=== PATIENT | female | born 1995 | race Caucasian/White ===

== ENCOUNTER 2024-08-24 20:26 | Emergency (ER) | payer OTHER, SELFPAY ==
--- OUTSIDE RECORDS SUMMARY | 2024-08-20 04:27 | XMS_ITS | Continuity of Care Document ---
Author Organization [facility] Address [address] [place] [address] [place] [address] Phone Care Team Providers Care Fruit Packer Name Role Phone Marivel Perez Unavailable Unavailable Procedures Procedure Date PSYCH DIAGNOSTIC EVALUATION Advance Directives Directive Yes / No Effective Date File Name No Information Encounters Encounter Description Practice Location Reason(s) For Visit Diagnoses Date Provider Providers Copied on Encounter [facility], [address] [place], [address], [place] tel: [phone] [facility] Opioid use disorder, severeAmphetamine type substance use disorder, severeAlcohol dependence, in remission 5 Chris Orta . [address], [place], [place], [id number] , [place]. tel: [phone] PSYCH DIAGNOSTIC EVALUATION [facility], [address] [place], [address], [place] tel: [phone] [facility] Imprisonment and other incarcerationAmphet amine type substance use disorder, severeAlcohol dependence, in remissionOpioid use disorder, severeMood disorder 4 Chris Orta . [address], [place], [place], [id number] , [place]. tel:+ [phone] Family History Family Member Type Diagnosis Age At Onset No Information Payers Payer name Insurance type Covered constitution party ID Authoriza tion(s) [facility] [id number] Medicaid Wrap [facility] [id number] Social History Type Description Quantity Date Captured Comments Sex Female Smoking Status No Information Sexual Orientation Straight or heterosexual Jan Gender Identity Female Chief Complaint And Reason For Visit No Information Reason For Referral Reason For Referral No Information History Of Present Illness Encounter Date Complaint History Of Prese nt Illness No Information Functional Status Date Functional Assessmen t No Information Instructions Date Instruction Additional Infor mation No Information Assessments Type Assessment Date assessment Opioid use disorder, severe assessment Amphetamine type substance use d isorder, severe assessment Alcohol dependence, in remission Patient Care Teams Name Effective Dates (start - stop) Status Members No Information
[2024-08-24] VITALS (17 sets, daily range): BP systolic 121; BP diastolic 87; PULSE 80–108; TEMP 37.1; O2SAT 100; BMI 34.2
--- OUTSIDE RECORDS SUMMARY | 2024-08-24 13:57 | XMS_ITS | Encounter Summary ---
Author Organization [facility] Address [address] [place] [address] Care Team Providers Care Real Estate Sales Supervisor Name Role Phone Unavailable Primary Care Provider Unavailabl e Reason for Visit * Reason Comments Hyperglycemia Blood sugar 141 Encounter Details Date Type Department Care Team ([facility] st Contact Info) Description 08/24/2024 1:57 PM EDT - 08/24/2024 2:42 PM EDT Emergency [facility] Emergency Department [facility] [phone] Prosper Bloom MD [address] [place] [address] Hyperglycemia due to diabetes mellitus (HCC) (Primary Dx) Discharge Disposition: Home or Self Care Social History Tobacco Use Types Packs/Day Years Used Date Smoking Tobacco: Every Day Cigarettes Smokeless Tobacco: Never Tobacco Cessation:Ready to Q uit: Not Asked; Counseling Given: Not Answered Alcohol Use Standard Drinks/Week Comments Not Currently 0 (1 standard drink = 0.6 oz pur e alcohol) Comments No Sex and Gender Information Value Date Recorded Sex Assigned at Not on file Legal Sex Female 1:35 PM EDT Gender Identity Not on file Sexual Orientation Not on file documented as of this encounter Last Filed Vital Signs Vital Sign Reading Time Taken Comments Blood Pressure 105/78 08/24/2024 1:52 PM EDT Pulse 105 08/24/2024 1:52 PM EDT Temperature 36.5 C (97.7 F) 08/24/2024 1:52 PM EDT Respiratory Rate 16 08/24/2024 1:52 PM EDT Oxygen Saturation 100% 08/24/2024 1:52 PM EDT Inhaled Oxygen Concentration - - Weight 77.1 kg (170 lb) 08/24/2024 1:52 PM EDT Height 152.4 cm (5') 08/24/2024 1:52 PM EDT Body Mass Index 33.2 08/24/2024 1:52 PM EDT documented in this encounter Discharge Instructions * Discharge Instructions* Prosper Bloom MD - 08/24/2024 2:11 PM EDT Continue taking your home medications as prescribed. Follow-up with your primary care physician as scheduled. Return back to the emergency department if you notice any concerning or worsening signs or symptoms. * Attachments The following attachments cannot be sent through Care Everywhere. * Diabetes: Insulin Pens: General Info (Wolof) * Diabetes: Type 2: General Info (Wolof) documented in this encounter Medications at Time of Discharge insulin lispro, 1 Unit Dial, (HUMALOG KWIKPEN) 100 UNIT/ML SOPN Inject 8 Units into the skin 3 times daily 3 Adjustable Dose Pre-filled Pen Syringe 08/24/2024 blood glucose monitor strips Test 3 times a day & as needed for symptoms of irregular blood glucose. Dispense sufficient amount for indicated testing frequency plus additional to accommodate PRN testing needs. 25 strip 08/24/2024 documented as of this encounter Plan of Treatment Not on file documented as of this encounter Procedures Procedure Name Priority Date/Time Associated Diagnosis Comments POC GLUCOSE FINGERSTICK Routine 08/24/2024 1:52 PM EDT documented in this encounter Results * (ABNORMAL) POC Glucose Fingerstick (08/24/2024 1:52 PM EDT) POC Glucose 141(H) 65 - 105 mg/dL 08/24/2024 1:52 PM EDT [facility] 08/24/2024 1:52 PM EDT 08/24/2024 1:58 PM EDT us Unknown Provider Result POINT OF CARE TEST ORDER ALFONSO Final Result [facility] [address] [place] [address], [facility] [phone] documented in this encounter Visit Diagnoses Diagnosis Hyperglycemia due to diabetes mellitus (HCC)- Primary documented in this encounter
--- NOTE | 2024-08-24 20:40 | ED_ITS ---
Documented by User: Dilshad Norman NP 08/24/24 21:39 HPI HPI - General Adult General Chief complaint: Chest Pain Stated complaint: CHEST PAIN Time Seen by Provider: 08/24/24 20:34 Source: patient Mode of arrival: walk-in Limitations: no limitations History of Present Illness HPI narrative: The patient is a 28-year-old female who is currently undergoing drug treatment rehabilitation at [facility] presents to the emergency department today for evaluation concerns for chest pain and shortness of breath. She endorses for the past hour she has had the left side pressure with associated symptoms of shortness of breath. She initially mention she has felt anxious and does have separation anxiety from her boyfriend. She denies any abdominal pain or n ausea/vomiting. No fever/chills or cough/cold symptoms. She does endorse a history of being type I diabetic and gastroparesis. She denies any history of VTE. Related Data Home Medications ?Medication ?Instructions ?Recorded ?Confirmed insulin lispro 100 unit/mL 1 sliding scale dose subcut 08/24/24 08/24/24 subcutaneous pen (Humalog KwikPen USEASDIRECTD (U-100) Insulin) Allergies Allergy/AdvReac Type Severity Reaction Status Date / Time hydrocodone Allergy Mild Hives Verified 08/24/24 20:35 Review of Systems ROS Status of ROS 10 or more systems reviewed and unremark able except as noted in history and below PFSH PFSH Social History Little interest or pleasure in doing things: not at all Feeling down, depressed, or hopeless: not at all Exam Narrative Exam Narrative: Constituational: Awake/ alert, no apparent distress, well hydrated HENMT: normocephalic, external ears normal, moist oral mucous membranes and oropharynx normal Eyes: EOMI and conjunctivae normal Neck: ROM intact Chest: inspection of chest normal Respiratory: Normal respiratory effort, clear to auscultation bilaterally Cardio: regular rate and regular rhythm GI: soft to palpation and non-tender Back: nontender MSK: ROM intact, +NVI Skin: no rashes or petechiae Neuro: no focal deficits Psych: + Mildly anxious, otherwise mental status grossly normal Constitutional Vital Signs, click to edit/add: Last Vital Signs Temp 98.7 F 08/24/24 20:30 Pulse 104 H 08/24/24 20:30 Resp 18 08/24/24 20:30 BP 121/87 08/24/24 20:30 Pulse Ox 100 08/24/24 20:30 O2 Del Method Room Air 08/24/24 20:30 Course Vital Signs Vital signs: Vital Signs Temperature 98.7 F 08/24/24 20:30 Pulse Rate 104 H 08/24/24 20:30 Respiratory Rate 18 08/24/24 20:30 Blood Pressure 121/87 08/24/24 20:30 Pulse Oximetry 100 08/24/24 20:30 Oxygen Delivery Method Room Air 08/24/24 20:30 Temperature 98.7 F 08/24/24 20:30 Pulse Rate 104 H 08/24/24 20:30 Respiratory Rate 18 08/24/24 20:30 Blood Pressure 121/87 08/24/24 20:30 Pulse Oximetry 100 08/24/24 20:30 Oxygen Delivery Method Room Air 08/24/24 20:30 Medical Decision Making MDM Narrative Medical decision making narrative: Patient is a well-appearing 28-year-old female who presented to the emergency department today for evaluation concerns for left-sided chest pain and shortness of breath. Initial examination vital signs overall stable. She does not appear to be exhibiting any ischemic symptoms and does appear euvolemic on exam. EKG without acute changes. X-ray without acute findings per ER interpre tation. Labs pending -> care endorsed to Dr. Acosta 21:40p follow-up on pending labs and further determine disposition patient Medical Records Medical records reviewed: Yes I reviewed the patient's medical records Lab Data Lab results reviewed: Yes I reviewed the patient's lab results Labs: Lab Results 08/24/24 Range/Units 21:56 WBC 8.2 (4.0-11.0) 10^3/uL RBC 3.67 L (4.20-5.40) 10^6/uL Hgb 11.1 L (12.0-16.0) g/dL Hct 32.2 L (36.0-48.0) % MCV 87.7 (81.0-99.0) fL MCH 30.2 (26.7-34.0) pg MCHC 34.5 (29.9-35.2) g/dL RDW 13.1 (11.0-15.0) % Plt Count 283 (150-450) 10^3/uL MPV 10.3 (9.5-13.5) fL Neut % (Auto) 49.9 (43.0-75.0) % Lymph % (Auto) 37.1 (20.5-60.0) % [place] % (Auto) 9.6 (1.7-12.0) % Eos % (Auto) 2.6 (0.9-7.0) % Baso % (Auto) 0.6 (0.2-2.0) % Neut # (Auto) 4.1 (1.4-6.5) 10^3/uL Lymph # (Auto) 3.0 (1.2-3.8) 10^3/uL [place] # (Auto) 0.8 (0.3-0.8) 10^3/uL Eos # (Auto) 0.2 (0.0-0.7) 10^3/uL Baso # (Auto) 0.1 (0.0-0.1) 10^3/uL Abs Immat Gran (auto) 0.02 (0.00-0.03) 10^3/uL Imm/Tot Granulo (auto) 0.2 (0.0-0.5) % D-Dimer 0.45 (<=0.59) mg/L FEU Sodium 144 (136-145) mmol/L Potassium 3.6 (3.5-5.1) mmol/L Chloride 105 (98-107) mmol/L Carbon Dioxide 28.9 (21.0-32.0) mmol/L Anion Gap 13.7 BUN 7.0 (7.0-18.0) mg/dL Creatinine 0.53 L (0.55-1.02) mg/dL Est GFR ( Amer) >60 (>=60 mL/min/1.73m^2) Est GFR (Non-Af Amer) >60 (>=60 mL/min/1.73m^2) BUN/Creatinine Ratio 13.2 Glucose 74 (74-106) mg/dL Calcium 8.8 (8.5-10.1) mg/dL Total Bilirubin 0.6 (0.2-1.0) mg/dL AST 19 (15-37) U/L ALT 24 (14-59) U/L Alkaline Phosphatase 80 (46-116) U/L Troponin I High Sens 5.3 (4.0-51.3) pg/mL Total Protein 6.5 (6.4-8.2) g/dL Albumin 3.5 (3.4-5.0) g/dL Globulin 3.0 g/dL Albumin/Globulin Ratio 1.2 Imaging Data Chest x-ray: Attestation: I personally reviewed and interpreted this imaging study as follows: My impression: No pneumonia, effusion, pneumothorax ECG Data Attestation: I personally reviewed and interpreted this ECG as follows: (SR with HR 87, no acute/ischemic changes) Discharge Plan Discharge Chief Complaint: Chest Pain Clinical Impression: Chest pain, Pneumonia Patient Disposition: Home, Self-Care Prescriptions / Home Meds: No Action insulin lispro [Humalog KwikPen Insulin] 100 unit/mL insulin pen 1 sliding scale dose subcut USEASDIRECTD Print Language: Chinese Instructions: Noncardiac Chest Pain (ED), Pneumonia (ED) Additional Instructions: follow up with your doctor next week for recheck. Return if worse Referrals: Physician,Non-Staff, [Primary Care Provider] - 1 week Documented by User: Abdirahman Acosta MD 08/25/24 05:04 HPI HPI - General Adult General Chief complaint: Chest Pain Stated complaint: CHEST PAIN Time Seen by Provider: 08/24/24 20:34 Related Data Home Medications ?Medication ?Instructions ?Recorded ?Confirmed insulin lispro 100 unit/mL 1 sliding scale dose subcut 08/24/24 08/24/24 subcutaneous pen (Humalog KwikPen USEASDIRECTD (U-100) Insulin) Allergies Allergy/AdvReac Type Severity Reaction Status Date / Time hydrocodone Allergy Mild Hives Verified 08/24/24 20:35 PFSH PFSH Social History Little interest or pleasure in doing things: not at all Feeling down, depressed, or hopeless: not at all Exam Constitutional Vital Signs, click to edit/add: Last Vital Signs Temp 98.7 F 08/24/24 20:30 Pulse 104 H 08/24/24 20:30 Resp 18 08/24/24 20:30 BP 121/87 08/24/24 20:30 Pulse Ox 100 08/24/24 20:30 O2 Del Method Room Air 08/24/24 20:30 Course Vital Signs Vital signs: Vital Signs Temperature 98.7 F 08/24/24 20:30 Pulse Rate 104 H 08/24/24 20:30 Respiratory Rate 18 08/24/24 20:30 Blood Pressure 121/87 08/24/24 20:30 Pulse Oximetry 100 08/24/24 20:30 Oxygen Delivery Method Room Air 08/24/24 20:30 Temperature 98.7 F 08/24/24 20:30 Pulse Rate 104 H 08/24/24 20:30 Respiratory Rate 18 08/24/24 20:30 Blood Pressure 121/87 08/24/24 20:30 Pulse Oximetry 100 08/24/24 20:30 Oxygen Delivery Method Room Air 08/24/24 20:30 Medical Decision Making MDM Narrative Medical decision making narrative: Patient is a well-appearing 28-year-old female who presented to the emergency department today for evaluation concerns for left-sided chest pain and shortness of breath. Initial examination vital signs overall stable. She does not appear to be exhibiting any ischemic symptoms and does appear euvolemic on exam. EKG without acute changes. X-ray without acute findings per ER interpretation. Labs pending -> care endorsed to Dr. Acosta 21:40p follow-up on pending labs and further determine disposition patient care transferred at change of shift. d-dimer neg. cxray per my impression with early infiltrate left lower lobe. Patient informed of the above and will treat as CAP Lab Data Labs: Lab Results 08/24/24 Range/Units 21:56 WBC 8.2 (4.0-11.0) 10^3/uL RBC 3.67 L (4.20-5.40) 10^6/uL Hgb 11.1 L (12.0-16.0) g/dL Hct 32.2 L (36.0-48.0) % MCV 87.7 (81.0-99.0) fL MCH 30.2 (26.7-34.0) pg MCHC 34.5 (29.9-35.2) g/dL RDW 13.1 (11.0-15.0) % Plt Count 283 (150-450) 10^3/uL MPV 10.3 (9.5-13.5) fL Neut % (Auto) 49.9 (43.0-75.0) % Lymph % (Auto) 37.1 (20.5-60.0) % [place] % (Auto) 9.6 (1.7-12.0) % Eos % (Auto) 2.6 (0.9-7.0) % Baso % (Auto) 0.6 (0.2-2.0) % Neut # (Auto) 4.1 (1.4-6.5) 10^3/uL Lymph # (Auto) 3.0 (1.2-3.8) 10^3/uL [place] # (Auto) 0.8 (0.3-0.8) 10^3/uL Eos # (Auto) 0.2 (0.0-0.7) 10^3/uL Baso # (Auto) 0.1 (0.0-0.1) 10^3/uL Abs Immat Gran (auto) 0.02 (0.00-0.03) 10^3/uL Imm/Tot Granulo (auto) 0.2 (0.0-0.5) % D-Dimer 0.45 (<=0.59) mg/L FEU Sodium 144 (136-145) mmol/L Potassium 3.6 (3.5-5.1) mmol/L Chloride 105 (98-107) mmol/L Carbon Dioxide 28.9 (21.0-32.0) mmol/L Anion Gap 13.7 BUN 7.0 (7.0-18.0) mg/dL Creatinine 0.53 L (0.55-1.02) mg/dL Est GFR ( Amer) >60 (>=60 mL/min/1.73m^2) Est GFR (Non-Af Amer) >60 (>=60 mL/min/1.73m^2) BUN/Creatinine Ratio 13.2 Glucose 74 (74-106) mg/dL Calcium 8.8 (8.5-10.1) mg/dL Total Bilirubin 0.6 (0.2-1.0) mg/dL AST 19 (15-37) U/L ALT 24 (14-59) U/L Alkaline Phosphatase 80 (46-116) U/L Troponin I High Sens 5.3 (4.0-51.3) pg/mL Total Protein 6.5 (6.4-8.2) g/dL Albumin 3.5 (3.4-5.0) g/dL Globulin 3.0 g/dL Albumin/Globulin Ratio 1.2 Discharge Plan Discharge Chief Complaint: Chest Pain Clinical Impression: Chest pain, Pneumonia Patient Disposition: Home, Self-Care Prescriptions / Home Meds: No Action insulin lispro [Humalog KwikPen Insulin] 100 unit/mL insulin pen 1 sliding scale dose subcut USEASDIRECTD Print Language: Chinese Instructions: Noncardiac Chest Pain (ED), Pneumonia (ED) Additional Instructions: follow up with your doctor next week for recheck. Return if worse Referrals: Physician,Non-Staff, MD [Primary Care Provider] - 1 week
--- NOTE | 2024-08-24 20:40 | ECG_ITS ---
[facility] Test Date: 2024-08-24 Pat Name: ZACHERY MCLEAN Department: Room: - Gender: Female Black Jack Dealer: : 1995 Requested By: [id number] Order Number: [id number] Reading MD: ELLA CHAVEZ M.D. Measurements Intervals Spray Rate: 87 P: 44 VT: 146 QRS: 75 QRSD: 74 T: 50 QT: 348 QTc: 393 Interpretive Statements 1100 Sinus rhythm 9110 normal ECG No previous ECG available for comparison Electronically Signed On 08-25-2024 19:56:13 EDT by ELLA CHAVEZ M.D.
--- OUTSIDE RECORDS SUMMARY | 2024-08-24 20:40 | XMS_ITS | Encounter Summary ---
Author Organization [facility] Address [address] [place] [address] Care Team Providers Care Powerhouse Mechanic Apprentice Name Role Phone Unavailable Primary Care Provider Unavailabl e Encounter Details Date Type Department Care Team (Latest Contact Info) Description 08/24/2024 Travel Social History Tobacco Use Types Packs/Day Years Used Date Smoking Tobacco: Every Day Cigarettes Smokeless Tobacco: Never Alcohol Use Standard Drinks/Week Comments Not Currently 0 (1 standard drink = 0.6 oz pur e alcohol) Comments No Sex and Gender Information Value Date Recorded Sex Assigned at Not on file Legal Sex Female 1:35 PM EDT Gender Identity Not on file Sexual Orientation Not on file documented as of this encounter Plan of Treatment Not on file documented as of this encounter Visit Diagnoses Not on filedocumented in this encounter
--- OUTSIDE RECORDS SUMMARY | 2024-08-24 20:40 | XMS_ITS | Clinical Summary ---
Author Organization [facility] [address] [facility] Address [address] [place] [address] Care Team Providers Care Flooring Machine Feeder Name Role Phone Unavailable Primary Care Provider Unavailabl e Allergies Active Allergy Reactions Criticality Noted Date Comments Red Dye #40 (Allura Red) Hives,Nausea And Vomiting Low 08/24/2024 Medications insulin lispro, 1 Unit Dial, (HUMALOG KWIKPEN) 100 UNIT/ML SOPN Inject 8 Units into the skin 3 times daily 3 Adjustable Dose Pre-filled Pen Syringe 5 Active blood glucose monitor strips Test 3 times a day & as needed for symptoms of irregular blood glucose. Dispense sufficient amount for indicated testing frequency plus additional to accommodate PRN testing needs. 25 strip 5 Active Encounters Date Type Department Care Team Description 08/24/2024 1:57 PM EDT - 08/24/2024 2:42 PM EDT Emergency [facility] Emergency Department [facility] [place] [address] Prosper Bloom MD Hyperglycemia due to diabetes mellitus (HCC) (Primary Dx) Discharge Disposition: Home or Self Care 08/24/2024 Travel from Last 3 Months Social History Tobacco Use Types Packs/Day Years [...] on file Sexual Orientation Not on file Last Filed Vital Signs Vital Sign Reading [...] Mass Index 33.2 08/24/2024 1:52 PM EDT Plan of Treatment Not on file Procedures Procedure Name Priority Date/Time Associated Diagnosis Comments POC GLUCOSE FINGERSTICK Routine 08/24/2024 1:52 PM EDT from Last 3 Months Results * (ABNORMAL) POC Glucose Fingerstick (08/24/2024 1:52 PM EDT) POC Glucose 141(H) 65 - 105 mg/dL 08/24/2024 1:52 PM EDT [facility] 08/24/2024 1:52 PM EDT 08/24/2024 1:58 PM EDT us Unknown Provider Result POINT OF CARE TEST ORDER ALFONSO Final Result [facility] [address] [place] [address], [facility] [phone] from Last 3 Months Insurance
--- NOTE | 2024-08-24 20:41 | XR_ITS ---
The [address] [address] Patient Name: ZACHERY MCLEAN MRN: [id number] date: 1995 Sex: F Assigned Patient Location: ED.MAIN Current Patient Location: Accession/Order Number: [id number] Exam Date: 08/25/2024 09:42 Report Date: 08/25/2024 09:42 At the request of: CATALINO VILLAGRAN NP Procedure: XR chest 2V Plain film chest 2 view HISTORY: Chest pain and shortness of breath COMPARISON: None FINDINGS: SUPPORT DEVICES: None POSTSURGICAL CHANGES: None HEART: Within normal limits PULMONARY TYESHA: Within normal limits MEDIASTINUM: Unremarkable LUNGS AND PLEURA: No acute lung process, pleural effusion or pneumothorax identified. BONY STRUCTURES: Intact ADDITIONAL FINDINGS None XR/XR chest 2V IMPRESSION: No acute process. Impression dictated by: Pascual Arzate M.D. 08/25/2024 9:42 AM Dictation Location: [employer] Electronically authenticated by: [id number] Y Date: 08/25/2024 09:42
--- NOTE | 2024-08-24 21:35 | PC.NURSE ---
Patient comes to this ED from [facility]. She had been living in a sober living home and was kicked out for relapsing. She and her boyfriend were going through recovery together and relapsed together. They were both sent to [facility], but were not permitted to see each other. Her boyfriend had cardiac issues today after using drugs yesterday and was sent to the hospital today, the patient also began to have heart issues today that she said are from a broken heart . She was hoping to be sent to the same hospital as her boyfriend, but [facility] sent them to different hospitals. She says that her boyfriend was very upset at her about the relapse, that he blames her because she got the drugs and brought them to him. She mentions that she does not want to be clean, that she was going through rehab for him, that her children were taken away so she has no reason to be clean other than him.
[2024-08-24 22:02] LABS: Basophils Absolute Auto 0.1 10^3/uL (0.0-0.1); Basophils Percent Auto 0.6 % (0.2-2.0); Eosinophils Absolute Auto 0.2 10^3/uL (0.0-0.7); Eosinophils Percent Auto 2.6 % (0.9-7.0); Hematocrit 32.2 % (36.0-48.0); Hemoglobin 11.1 g/dL (12.0-16.0); Immature Granulocytes Abs Auto 0.02 10^3/uL (0.00-0.03); Immature Granulocytes Pct Auto 0.2 % (0.0-0.5); Lymphocytes Percent Auto 37.1 % (20.5-60.0); Mean Corpuscular HGB Conc 34.5 g/dL (29.9-35.2); Mean Corpuscular Hemoglobin 30.2 pg (26.7-34.0); Mean Corpuscular Volume 87.7 fL (81.0-99.0); Mean Platelet Volume 10.3 fL (9.5-13.5); Monocytes Absolute Auto 0.8 10^3/uL (0.3-0.8); Monocytes Percent Auto 9.6 % (1.7-12.0); Neutrophils Absolute Auto 4.1 10^3/uL (1.4-6.5); Neutrophils Percent Auto 49.9 % (43.0-75.0); Platelet Count 283 10^3/uL (150-450); Red Blood Count 3.67 10^6/uL (4.20-5.40); Red Cell Distribution Width 13.1 % (11.0-15.0); White Blood Count 8.2 10^3/uL (4.0-11.0)
[2024-08-24 22:19] LABS: Alanine Aminotransferase 24 U/L (14-59); Albumin Globulin Ratio 1.2; Albumin Level 3.5 g/dL (3.4-5.0); Alkaline Phosphatase 80 U/L (46-116); Anion Gap 13.7; Aspartate Amino Transferase 19 U/L (15-37); BUN Creatinine Ratio 13.2; Bilirubin Total 0.6 mg/dL (0.2-1.0); Calcium 8.8 mg/dL (8.5-10.1); Carbon Dioxide 28.9 mmol/L (21.0-32.0); Chloride 105 mmol/L (98-107); Estimated GFR (African America >60 (>=60 mL/min/1.73m^2); Estimated GFR (Non-African Ame >60 (>=60 mL/min/1.73m^2); Glucose 74 mg/dL (74-106); Potassium 3.6 mmol/L (3.5-5.1); Sodium 144 mmol/L (136-145); Total Protein 6.5 g/dL (6.4-8.2); Troponin I High Sensitivity 5.3 pg/mL (4.0-51.3)
[2024-08-24 22:38] LABS: D Dimer 0.45 mg/L FEU (<=0.59)
[2024-08-25] VITALS (33 sets, daily range): BP systolic 96; BP diastolic 58; PULSE 74–107
[2024-08-25] MEDS: AZITHROMYCIN 250 MG TABLET 500 MG PO (05:24)
[2024-08-25] MEDS: CEFUROXIME AXETIL 250 MG TABLET 500 MG PO (05:24)
== END 2024-08-25 05:39 | disposition home or self-care (01) ==
PROVIDERS: Nurse Practitioner; Emergency Provider Internal Medicine
DX: J18.9 Pneumonia, unspecified organism (principal); R07.9 Chest pain, unspecified; R06.02 Shortness of breath; E10.9 Type 1 diabetes mellitus without complications; Z79.4 Long term (current) use of insulin
CPT/HCPCS: 36415; 71046; 80053; 80307; 84484; 85025; 85378; 93005; 99285